=== PATIENT | male | born 1985 | race Caucasian/White ===

== ENCOUNTER → 2018-02-16 | Day surgery (SDC) | payer BC ==
[~2018-02-16] MED LIST: ATROPINE SULFATE 1% OPHT SOLN 2 ML BTL ONE; DEXAMETHASONE SOD PHOS 4 MG/ML VIAL ONE; EPINEPHrine HCL (1:1000) 1 MG/ML VIAL ONE; FLURBIPROFEN 0.03% OPHT SOLN 2.5 ML BTL ONE; HYALURONIDASE/LIDOCAINE/BUPIVACAINE 5 ML SYR ONE; KETAMINE HCL 500 MG/5 ML VIAL ONE; LACTATED RINGER'S 1000 ML INJ 1,000 ML ONE; MIDAZOLAM HCL 2 MG/2 ML VIAL ONE; NEOMYCIN/POLYMYXIN/DEXAMETHASONE OPTH OINT 3.5 GM TUBE ONE; ONDANSETRON HCL 4 MG/2 ML VIAL IV PUSH ONE; PHENYLEPHRINE HCL 2.5 % OPTH SOLN 15 ML BTL ONE; TETRACAINE 0.5% OPTH SOLN 15 ML BTL ONE; TROPICAMIDE 1% OPHT SOLN 15 ML BTL ONE; ceFAZolin INJ 1,000 MG VIAL ONE
--- NOTE | 2018-03-01 10:44 | MP ---
cc: Franki Nam MD DATE OF OPERATION: 02/16/2018 PREOPERATIVE DIAGNOSES: Proliferative diabetic retinopathy, traction retinal detachment, right eye. POSTOPERATIVE DIAGNOSES: Proliferative diabetic retinopathy, traction retinal detachment, right eye. PROCEDURE PERFORMED: Pars plana vitrectomy, membrane peeling, endolaser, silicone oil placement, all right eye. ANESTHESIA: LMA. SURGEON: Franki Fontana MD COMPLICATIONS: None. DESCRIPTION OF PROCEDURE: After informed consent was obtained, the patient was brought to the operating room, placed under brief anesthesia with propofol. An LMA mask was then inserted into the oropharynx for general anesthesia. He was then prepared and draped in the usual sterile fashion. A wire lid speculum was placed in the patient's right eye. A 270 degree conjunctival peritomy was then performed with the 0.12 forceps and Shanice scissors. Excellent hemostasis was obtained with bipolar cautery. The 23-gauge vitrectomy cannulas were then placed in the lower temporal, supratemporal and supranasal quadrants 3 mm posterior to the corneoscleral limbus. An infusion cannula was placed lower temporally. The previous silicone oil was then removed. There were extensive preretinal membranes creating traction on the retina and these membranes were peeled. There was also some silicone oil present subretinally and this was removed after a retinectomy. After removal of the membranes, a complete air air-fluid exchange was performed and endolaser was used to treat the edge of the retinectomy. The silicone oil was then used to fill the vitreous cavity. The 3 vitrectomy cannulas were removed and each site was closed with interrupted 6-0 Vicryl suture. The conjunctiva was then reopposed using 2 interrupted 7-0 Vicryl sutures. Subconjunctival injections of Solu-Medrol and Ancef were placed. Atropine drops, Maxitrol and patch and shield were then applied. The patient tolerated the procedure well. There were no complications. He will followup tomorrow in our [place] office. Franki Nam MD TAB/KD , 09:03 AM , 10:42 AM
== END | disposition home or self-care (01) ==
LOC: ESDC 11:19
PROVIDERS: ATTEND Ophthalmology Retina Specialist
DX: E11.3531 Type 2 diabetes mellitus with proliferative diabetic retinopathy with traction retinal detachment not involving the macula, right eye (principal)
CPT/HCPCS: 00145; 67113; 82948; C1814; J0171; J0690; J1100; J2250; J2405; J7120